=== PATIENT | male | born 1945 | race Caucasian/White ===

== ENCOUNTER → 2019-03-10 14:03 | Outpatient (CLI) | payer OTHER, SELFPAY ==
--- NOTE | 2019-03-10 | DI.MRI.S_ITS ---
PROCEDURE: MR BRAIN (IAC) WWO CON INDICATIONS: Unspecified sensorineural hearing loss TECHNIQUE: Noncontrast sagittal T1 spin echo, axial FLAIR, axial gradient echo, axial diffusion and ADC through the brain. Axial thin-slice 3D CISS, coronal TruFISP, axial T1 spin echo with fat saturation through the internal auditory canals. After the administration of contrast, thin slice axial and coronal T1 spin echo with fat saturation through the internal auditory canals, and axial T1 spin echo with fat saturation through the brain. COMPARISON: None. FINDINGS: Image quality: Excellent. Cerebellopontine angles: No cerebellopontine angle masses. Inner ear structures appear normally formed. No suspicious enhancement in the internal auditory canal or along the course of the 7th cranial nerve. CSF spaces: Ventricles are normal in size and shape. No extra-axial fluid collections. Basal cisterns are patent. Brain: No intracranial bleeds or mass effects. Nonspecific partially empty appearance of the sella. Fierro-white matter interface is intact. No abnormal intracranial enhancement. Diffusion weighted images demonstrate no acute ischemic insults. Brainstem appears normal. Normal intravascular flow voids are present. Skull and face: Calvarial marrow signal is normal. Orbits appear normal. Sinuses: Sinuses and mastoids are clear. IMPRESSION: No discrete mass or suspicious abnormal enhancement involving the IAC or cerebellopontine angles bilaterally. Diffuse small white matter changes, probably represent chronic microvascular ischemic disease, versus statistically less likely demyelination or other infectious, inflammatory, neurodegenerative etiology, technically nonspecific. Dictated by: Carlos Ribera M.D. on 03/10/2019 at 15:28 Approved by: Carlos Ribera M.D. on 03/10/2019 at 15:34
== END ==
PROVIDERS: Visit Provider Otolaryngology
DX: H90.5 Unspecified sensorineural hearing loss (principal); R42 Dizziness and giddiness
CPT/HCPCS: 70553; A9579

== ENCOUNTER → 2021-01-31 09:44 | Outpatient (CLI) | payer OTHER, SELFPAY ==
[2021-01-31 12:16] LABS: COVID19 -Nasal RAPID Negative (Negative)
== END ==
PROVIDERS: Visit Provider Nurse Practitioner Family
DX: Z20.822 Contact with and (suspected) exposure to COVID-19 (principal); Z01.812 Encounter for preprocedural laboratory examination
CPT/HCPCS: 87635

== ENCOUNTER 2021-02-01 07:47 | Day surgery (SDC) | payer OTHER, SELFPAY ==
[2021-02-01 09:17] VITALS: BP 167/77; PULSE 69; RESP 16; TEMP 36.4; O2SAT 100; BMI 31.7
[2021-02-01] MEDS: PROPARACAINE 0.5% OPHTH SOL 2 DROPS EYE-OP (09:19)
[2021-02-01] MEDS: CATARACT EYE COMPOUND (10 DROPS/SYRINGE) 3 DROPS EYE-OP (09:27)
--- NOTE | 2021-02-01 09:37 | PM.PREOP ---
Pre-operative Note Interval Note History & Physical reviewed/Exam performed by Physician: Yes Changes to H&P: No
--- NOTE | 2021-02-01 09:37 | PM.OP.1 ---
Operative Date/Time/Diagnoses Pre-op diagnosis: Nuclear cataract right eye Procedure & Clinicians Procedure: Cataract Surgery Same procedure as scheduled: Yes Surgeon: Garett Nunez Anesthesia Type: MAC +/- and Sedation Operative Notes Procedure in detail: Patient brought to the operating suite. Tetracaine drops placed in the right eye. Patient was prepped and draped in sterile manner. Wire lid speculum was placed in the eye. Betadine drops were placed on the eye. This was irrigated. Lidocaine jelly was placed on the eye. A paracentesis port was created with a side-port blade. 0.1 mL 1% preservative free lidocaine was injected into the anterior chamber. The anterior chamber was deepened with viscoelastic. 2.6 mm keratome was used to create a temporal clear corneal incision. The pupil was floppy and miotic. A 6.25 mm malyugin ring was used to enlarge the pupil. Cystotome and Utrata forceps were used to create continuous tear capsulorrhexis. Balanced salt solution was used to hydro dissect the nucleus. The phacoemulsification handpiece was inserted and the nucleus was removed using the stop and chop technique. The irrigation aspiration handpiece was inserted and the remaining cortex was removed. Anterior chamber was deepened with viscoelastic. An Hale DIB00 intraocular lens with a power of 16.5 was injected into the capsular bag. The malyugin ring was removed. Irrigation aspiration handpiece was inserted and the remaining viscoelastic was removed. Incision was hydrated with balanced salt solution and found to leak. A 10-0 nylon suture was used to close the incision. The incision was leak free with pressure with Weck-Tish sponges. 0.1 mL Vigamox injected anterior chamber. 0.3 mL Kenalog 10 mg was injected subconjunctivally. Lid speculum was removed. The patient left the operating room in excellent condition. Complications: none Post-operative Condition: stable Disposition: same day surgery
[2021-02-01] MEDS: HYALURONATE SODIUM 30 MG-10 MG/ML SYRINGES 1 BOX INTRAOCULA (09:58)
[2021-02-01] MEDS: PHENYLEPHRINE/LIDOCAINE VIAL (OR) 0.2 ML EYE-OP (09:58)
[2021-02-01] MEDS: LIDOCAINE 2% (GLYDO) 6 ML GEL TOP (09:58)
[2021-02-01] MEDS: MOXIFLOXACIN INJ 4 MG/0.8 ML VIAL 0.5 MG EYE-OP (09:58)
[2021-02-01] MEDS: TRIAMCINOLONE 50 MG/5 ML VIAL INJ (09:59)
[2021-02-01] MEDS: BALANCED SALT IRRIG SOLN NO.2 500 ML, EPINEPHrine 1 MG IRR (09:59)
[2021-02-01] MEDS: TETRACAINE 0.5% OPHTH DROPS 4 ML 2 DROPS EYE-OP (09:59)
[2021-02-01 10:20] VITALS: BP 141/82; PULSE 75; RESP 12; TEMP 36.8; O2SAT 99
== END 2021-02-01 10:34 | disposition home or self-care (01) ==
PROVIDERS: Referring Provider Ophthalmology; Visit Provider Ophthalmology
PROC: (CPT 66984; principal; 2021-02-01 09:45)
DX: H25.11 Age-related nuclear cataract, right eye (principal); I10 Essential (primary) hypertension
CPT/HCPCS: 66984; J0171; J2250; J3301

== ENCOUNTER → 2021-02-14 09:11 | Outpatient (CLI) | payer OTHER, SELFPAY ==
[2021-02-14 12:36] LABS: COVID19 -Nasal RAPID Negative (Negative)
== END ==
PROVIDERS: Visit Provider Nurse Practitioner Family
DX: Z20.822 Contact with and (suspected) exposure to COVID-19 (principal); Z01.812 Encounter for preprocedural laboratory examination
CPT/HCPCS: 87635

== ENCOUNTER 2021-02-15 09:28 | Day surgery (SDC) | payer OTHER, SELFPAY ==
[2021-02-15 09:55] VITALS: BP 151/74; PULSE 66; RESP 14; TEMP 36.7; O2SAT 99; BMI 31.7
[2021-02-15] MEDS: CATARACT EYE COMPOUND (10 DROPS/SYRINGE) 3 DROPS EYE-OP (10:09)
[2021-02-15] MEDS: PROPARACAINE 0.5% OPHTH SOL 2 DROPS EYE-OP (10:09)
--- NOTE | 2021-02-15 10:55 | PM.PREOP ---
Pre-operative Note Interval Note History & Physical reviewed/Exam performed by Physician: Yes Changes to H&P: No
--- NOTE | 2021-02-15 10:55 | PM.OP.1 ---
Operative Date/Time/Diagnoses Pre-op diagnosis: Nuclear Cataract Left eye Post-op diagnosis: same Procedure & Clinicians Same procedure as scheduled: Yes Surgeon: Garett Nunez Anesthesia Type: MAC +/- and Sedation Operative Notes Procedure in detail: Patient brought to the operating suite. Tetracaine drops placed in the left eye. Patient was prepped and draped in sterile manner. Wire lid speculum was placed in the eye. Betadine drops were placed on the eye. This was irrigated. Lidocaine jelly was placed on the eye. A paracentesis port was created with a side-port blade. 0.1 mL 1% preservative free lidocaine was injected into the anterior chamber. The anterior chamber was deepened with viscoelastic. 2.6 mm keratome was used to create a temporal clear corneal incision. The pupil was floppy and miotic. A 6.25 mm malyugin ring was used to enlarge the pupil. Cystotome and Utrata forceps were used to create continuous tear capsulorrhexis. Balanced salt solution was used to hydro dissect the nucleus. The phacoemulsification handpiece was inserted and the nucleus was removed using the stop and chop technique. The irrigation aspiration handpiece was inserted and the remaining cortex was removed. Anterior chamber was deepened with viscoelastic. An Hale DIB00 intraocular lens with a power of 16.5 was injected into the capsular bag. The Malyugin ring was removed. Irrigation aspiration handpiece was inserted and the remaining viscoelastic was removed. Incision was hydrated with balanced salt solution and found to be leak free with pressure with Weck-Tish sponges. 0.1 mL Vigamox injected anterior chamber. 0.3 mL Kenalog 10 mg was injected subconjunctivally. Lid speculum was removed. The patient left the operating room in excellent condition. Complications: none Post-operative Condition: stable Disposition: same day surgery
[2021-02-15] MEDS: MOXIFLOXACIN INJ 4 MG/0.8 ML VIAL 0.5 MG EYE-OP (11:28)
[2021-02-15] MEDS: HYALURONATE SODIUM 30 MG-10 MG/ML SYRINGES 1 BOX INTRAOCULA (11:28)
[2021-02-15] MEDS: PHENYLEPHRINE/LIDOCAINE VIAL (OR) 0.2 ML EYE-OP (11:28)
[2021-02-15] MEDS: TETRACAINE 0.5% OPHTH DROPS 4 ML 2 DROPS EYE-OP (11:29)
[2021-02-15] MEDS: TRIAMCINOLONE 50 MG/5 ML VIAL INJ (11:29)
[2021-02-15] MEDS: BALANCED SALT IRRIG SOLN NO.2 500 ML, EPINEPHrine 1 MG IRR (11:29)
[2021-02-15] MEDS: LIDOCAINE 2% (GLYDO) 6 ML GEL TOP (11:29)
[2021-02-15 11:44] VITALS: BP 153/82; PULSE 70; RESP 14; TEMP 36.7; O2SAT 99
== END 2021-02-15 12:00 | disposition home or self-care (01) ==
PROVIDERS: Referring Provider Ophthalmology; Visit Provider Ophthalmology
PROC: (CPT 66984; principal; 2021-02-15 11:15)
DX: H25.12 Age-related nuclear cataract, left eye (principal); I10 Essential (primary) hypertension; G47.33 Obstructive sleep apnea (adult) (pediatric)
CPT/HCPCS: 66984; J0171; J2250; J3301